=== PATIENT | female | born 1980 | race Caucasian/White ===

== ENCOUNTER 2018-02-20 04:55 | Outpatient (CLI) | payer OTHER ==
[~2018-02-20] VITALS: Ht 162.6 cm; Wt 97.7 kg
[~2018-02-20 04:55] MED LIST: PREN1TAB10 PO
[2018-02-20] MEDS ORDERED: CALC200T3 PO (05:59)
[2018-02-20] MEDS ORDERED: BETAMETHASONE 6 MG/ML, 5ML IM ONE ×2 (06:55→07:00)
== END 2018-02-20 07:43 | disposition home or self-care (01) ==
LOC: LDOP 04:55
PROVIDERS: ATTEND Obstetrics & Gynecology Gynecology
DX: O26.893 Other specified pregnancy related conditions, third trimester (principal); R10.9 Unspecified abdominal pain; Z3A.34 34 weeks gestation of pregnancy
CPT/HCPCS: 59025; 96372; 99211; J0702; G0463

== ENCOUNTER 2018-02-21 07:06 | Outpatient (CLI) | payer OTHER ==
[~2018-02-21 07:06] MED LIST changes: +CALC200T3 PO
[2018-02-21] MEDS ORDERED: BETAMETHASONE 6 MG/ML, 5ML IM ONE (07:30)
[2018-02-21 08:18] LABS: BASOPHILS # (AUTO) 0.01 x10^3/uL (0-0.1); BASOPHILS % (AUTO) 0 % (0-1); EOSINOPHILS # (AUTO) 0.03 x10^3/uL (0-0.4); EOSINOPHILS % (AUTO) 1 % (1-7); LYMPHOCYTES % (AUTO) 21 % (22-44); MD NO; MEAN CORPUSCULAR HEMOGLOBIN 31.7 pg (27.0-34.8); MEAN CORPUSCULAR HGB CONC 33.6 g/dL (32.4-35.8); MEAN CORPUSCULAR VOLUME 94.4 fL (80-100); MEAN PLATELET VOLUME 9.1 fL (7.4-10.4); MONOCYTES # (AUTO) 0.38 x10^3/uL (0.2-0.8); MONOCYTES % (AUTO) 7 % (2-9); NEUTROPHILS # (AUTO) 3.82 x10^3/uL (1.8-6.8); NEUTROPHILS % (AUTO) 72 % (42-75); PLATELET COUNT 222 x10^3/uL (130-400); RED BLOOD COUNT 3.72 x10^6/uL (3.82-5.3); RED CELL DISTRIBUTION WIDTH 13.2 % (9.6-15.2)
[2018-02-21 08:21] LABS: ALBUMIN 2.2 g/dL (3.4-5.0); ANION GAP 12 mmol/L (5-15); BILIRUBIN, DIRECT < 0.1 mg/dL (0.1-0.2); CALCIUM 9.2 mg/dL (8.5-10.1); CHLORIDE 110 mmol/L (98-107)
[2018-02-21 08:24] LABS: ALANINE AMINOTRANSFERASE 21 U/L (12-78); ALKALINE PHOSPHATASE 167 U/L (45-117); BILIRUBIN,TOTAL 0.2 mg/dL (0.2-1.0); CREATININE 0.87 mg/dL (0.55-1.02); TOTAL PROTEIN 6.1 g/dL (6.4-8.2)
[2018-02-21 09:05] LABS: MICROSCOPIC INDICATED
[2018-02-21 09:08] LABS: CREATININE,URINE RANDOM 72.2 mg/dL
== END 2018-02-21 10:18 | disposition home or self-care (01) ==
LOC: LDOP 07:06
PROVIDERS: ATTEND Obstetrics & Gynecology Gynecology
DX: O26.893 Other specified pregnancy related conditions, third trimester (principal); Z3A.34 34 weeks gestation of pregnancy
CPT/HCPCS: 36415; 59025; 80053; 81001; 81050; 82248; 82570; 84156; 84550; 85025; 96372; 99211; J0702; G0463

== ENCOUNTER 2018-02-24 21:51 | Inpatient (IN) | payer OTHER ==
[~2018-02-24] VITALS: Ht 162.6 cm; Wt 99.0 kg
[2018-02-24] MEDS ORDERED: OXYTOCIN 30U/ 0.9% NaCL 500ML 500 ML IV SCH (22:27)
[2018-02-24] MEDS ORDERED: LACTATED RINGERS 1,000 ML IV SCH ×2 (22:27→22:30)
[2018-02-24] MEDS ORDERED: METOCLOPRAMIDE 5 MG/ML, 2ML IV ONE (22:30)
[2018-02-24] MEDS ORDERED: LACTATED RINGERS 1,000 ML IVBOLUS ONE (22:30)
[2018-02-24] MEDS ORDERED: ONDANSETRON 2MG/ML, 2ML IVPush ONE (22:30)
[2018-02-24] MEDS ORDERED: SODIUM CITRATE/CITRIC ACID 30 ML UDC PO ONE (22:30)
[2018-02-24] MEDS ORDERED: LABETALOL 5MG/ML, 20ML IVPush STA (22:47)
[2018-02-24] MEDS ORDERED: LABETALOL 5MG/ML, 20ML ONE (22:49)
[2018-02-24] MEDS ORDERED: MAGNESIUM SULFATE PMX 4GM/100M 100 ML ONE (22:50)
[2018-02-24] MEDS ORDERED: METOCLOPRAMIDE 5 MG/ML, 2ML ONE (22:51)
[2018-02-24] MEDS ORDERED: SODIUM CITRATE/CITRIC ACID 30 ML UDC ONE ×2 (22:51)
[2018-02-24] MEDS ORDERED: MAGNESIUM SULF. PMX 20GM/500ML 500 ML IV ONE ×2 (22:51→23:00)
[2018-02-24] MEDS ORDERED: OXYTOCIN 30U/ 0.9% NaCL 500ML 500 ML ONE (22:52)
[2018-02-24] MEDS ORDERED: FENTANYL PF 100 MCG/2ML ONE (23:04)
[2018-02-24] MEDS ORDERED: OXYTOCIN 10 UNITS/ML, 1ML ONE (23:04)
[2018-02-24] MEDS ORDERED: NEWBORN KIT ONE (23:10)
[2018-02-24 23:11] LABS: ALANINE AMINOTRANSFERASE 27 U/L (12-78); ALBUMIN 2.3 g/dL (3.4-5.0); ANION GAP 8 mmol/L (5-15); BILIRUBIN, DIRECT < 0.1 mg/dL (0.1-0.2); CALCIUM 9.3 mg/dL (8.5-10.1); CHLORIDE 109 mmol/L (98-107); CREATININE 0.75 mg/dL (0.55-1.02)
[2018-02-24 23:13] LABS: ALKALINE PHOSPHATASE 164 U/L (45-117); BILIRUBIN,TOTAL 0.3 mg/dL (0.2-1.0); TOTAL PROTEIN 6.3 g/dL (6.4-8.2)
[2018-02-24 23:17] LABS: BASOPHILS % (AUTO) 0 % (0-1); EOSINOPHILS # (AUTO) 0.06 x10^3/uL (0-0.4); EOSINOPHILS % (AUTO) 1 % (1-7); LYMPHOCYTES # (AUTO) 1.07 x10^3/uL (1-3.4); LYMPHOCYTES % (AUTO) 16 % (22-44); MD NO; MEAN CORPUSCULAR HEMOGLOBIN 31.5 pg (27.0-34.8); MEAN CORPUSCULAR HGB CONC 33.3 g/dL (32.4-35.8); MEAN CORPUSCULAR VOLUME 94.6 fL (80-100); MEAN PLATELET VOLUME 8.7 fL (7.4-10.4); MONOCYTES # (AUTO) 0.45 x10^3/uL (0.2-0.8); MONOCYTES % (AUTO) 7 % (2-9); NEUTROPHILS # (AUTO) 5.16 x10^3/uL (1.8-6.8); NEUTROPHILS % (AUTO) 77 % (42-75); PLATELET COUNT 221 x10^3/uL (130-400); RED CELL DISTRIBUTION WIDTH 13.3 % (9.6-15.2)
[2018-02-24] MEDS ORDERED: CLINDAMYCIN PMX 900MG/50ML 50 ML ONE (23:28)
[2018-02-24] MEDS: MAGNESIUM SULF. PMX 20GM/500ML 500 ML IV SCH (23:40)
[2018-02-24 23:45] LABS: MICROSCOPIC NOT IND
[2018-02-25] MEDS ORDERED: LACTATED RINGERS 1,000 ML IV SCH ×2 (00:47)
[2018-02-25] MEDS ORDERED: OXYTOCIN 30U/ 0.9% NaCL 500ML 500 ML IV SCH (00:47)
[2018-02-25] MEDS ORDERED: MORPHINE SULFATE 4 MG/ML, 1ML IVPush PRN (01:00)
[2018-02-25] MEDS ORDERED: hydrALAzine 20 MG/ML, 1ML IV PRN (01:00)
[2018-02-25] MEDS ORDERED: LABETALOL 5MG/ML, 20ML IV PRN (01:00)
[2018-02-25] MEDS ORDERED: morphine SULFATE 10 MG/ML, 1ML IVPush PRN (01:00)
[2018-02-25] MEDS ORDERED: FENTANYL PF 100 MCG/2ML IV PRN (01:00)
[2018-02-25] MEDS ORDERED: PROMETHAZINE 25 MG/ML, 1ML IM PRN (01:00)
[2018-02-25] MEDS ORDERED: ONDANSETRON 2MG/ML, 2ML IV PRN ×2 (01:00)
[2018-02-25] MEDS ORDERED: MISOPROSTOL 200 MCG TABLET PR PRN (01:00)
[2018-02-25] MEDS ORDERED: OXYcodone 5 MG/5 ML ORAL.SOL UDC PO PRN (01:00)
[2018-02-25] MEDS ORDERED: MEPERIDINE/PF 50 MG/ML ONE ×2 (01:27→04:55)
[2018-02-25] MEDS ORDERED: MEPERIDINE/PF 25MG/0.5ML IVPush PRN (01:30)
[2018-02-25] MEDS: MEPERIDINE/PF 50 MG/ML IVPush PRN ×2 (01:33→05:01)
[2018-02-25] MEDS ORDERED: KETOROLAC 30 MG/1 ML ONE ×4 (03:48→22:30)
[2018-02-25] MEDS: KETOROLAC 30 MG/1 ML IV SCH ×4 (03:52→22:34)
[2018-02-25 06:12] LABS: BASOPHILS % (AUTO) 0 % (0-1); EOSINOPHILS # (AUTO) 0.02 x10^3/uL (0-0.4); EOSINOPHILS % (AUTO) 0 % (1-7); LYMPHOCYTES # (AUTO) 0.92 x10^3/uL (1-3.4); LYMPHOCYTES % (AUTO) 11 % (22-44); MD NO; MEAN CORPUSCULAR HEMOGLOBIN 32.1 pg (27.0-34.8); MEAN CORPUSCULAR HGB CONC 34.3 g/dL (32.4-35.8); MEAN CORPUSCULAR VOLUME 93.7 fL (80-100); MEAN PLATELET VOLUME 8.7 fL (7.4-10.4); MONOCYTES # (AUTO) 0.52 x10^3/uL (0.2-0.8); MONOCYTES % (AUTO) 6 % (2-9); NEUTROPHILS # (AUTO) 7.04 x10^3/uL (1.8-6.8); NEUTROPHILS % (AUTO) 83 % (42-75); PLATELET COUNT 198 x10^3/uL (130-400); RED BLOOD COUNT 3.56 x10^6/uL (3.82-5.3); RED CELL DISTRIBUTION WIDTH 13.4 % (9.6-15.2)
[2018-02-25 06:21] LABS: ALBUMIN 2.1 g/dL (3.4-5.0); ANION GAP 10 mmol/L (5-15); CALCIUM 8.5 mg/dL (8.5-10.1); CHLORIDE 109 mmol/L (98-107)
[2018-02-25 06:24] LABS: ALANINE AMINOTRANSFERASE 28 U/L (12-78); ALKALINE PHOSPHATASE 148 U/L (45-117); BILIRUBIN,TOTAL 0.3 mg/dL (0.2-1.0); TOTAL PROTEIN 5.9 g/dL (6.4-8.2)
[2018-02-25] MEDS ORDERED: OXYcodone 5 MG/5 ML ORAL.SOL UDC ONE (08:22)
[2018-02-25] MEDS: PRENATAL VIT/IRON/FA 1 EACH TABLET PO SCH (09:00)
[2018-02-25] MEDS ORDERED: MAGNESIUM SULF. PMX 20GM/500ML 500 ML IV ONE ×2 (09:39→19:20)
[2018-02-25] MEDS: MAGNESIUM SULF. PMX 20GM/500ML 500 ML IV SCH ×2 (09:44→19:41)
[2018-02-25] MEDS ORDERED: OXYcodone/APAP 5/325MG TABLET ONE ×2 (14:25→21:01)
[2018-02-25] MEDS: OXYcodone/APAP 5/325MG TABLET PO PRN ×2 (14:27→14:28)
[2018-02-25] MEDS ORDERED: LABETALOL 5MG/ML, 20ML IVPush ONE (21:00)
[2018-02-25] MEDS ORDERED: LABETALOL 100 MG TABLET ONE (22:16)
[2018-02-25] MEDS: LABETALOL 100 MG TABLET PO SCH (22:23)
[2018-02-26] MEDS: LACTATED RINGERS 1,000 ML IV SCH ×2 (00:39→20:47)
[2018-02-26] MEDS: OXYcodone/APAP 5/325MG TABLET PO PRN (00:40)
[2018-02-26] MEDS ORDERED: KETOROLAC 30 MG/1 ML ONE (04:00)
[2018-02-26] MEDS: KETOROLAC 30 MG/1 ML IV SCH ×4 (04:02→22:41)
[2018-02-26] MEDS ORDERED: LABETALOL 100 MG TABLET ONE (05:51)
[2018-02-26] MEDS: LABETALOL 100 MG TABLET PO SCH ×2 (05:54→17:42)
[2018-02-26] MEDS ORDERED: OXYcodone IR 5MG TABLET ONE (07:42)
[2018-02-26] MEDS: OXYcodone IR 5MG TABLET PO PRN ×3 (07:44→22:41)
[2018-02-26 07:48] VITALS: BP 139/83
[2018-02-26] MEDS: PRENATAL VIT/IRON/FA 1 EACH TABLET PO SCH (09:00)
[2018-02-26 09:13] VITALS: BP 134/88
[2018-02-26 12:12] VITALS: BP 132/82
[2018-02-26 16:19] VITALS: BP 142/86
[2018-02-26] MEDS: DOCUSATE 100 MG CAPSULE PO PRN (17:42)
[2018-02-26 20:15] VITALS: BP 129/77
[2018-02-27] VITALS (7 sets, daily range): BP systolic 141–159; BP diastolic 87–102
[2018-02-27] MEDS: OXYcodone IR 5MG TABLET PO PRN ×3 (04:20→19:37)
[2018-02-27] MEDS: LABETALOL 100 MG TABLET PO SCH ×2 (06:33→18:23)
[2018-02-27] MEDS: DOCUSATE 100 MG CAPSULE PO PRN ×2 (08:53→19:37)
[2018-02-27] MEDS: IBUPROFEN 600 MG TABLET PO PRN ×2 (08:53→18:23)
[2018-02-27] MEDS: PRENATAL VIT/IRON/FA 1 EACH TABLET PO SCH (08:54)
[2018-02-27] MEDS: OXYcodone/APAP 5/325MG TABLET PO PRN ×2 (14:33→18:23)
[2018-02-27] MEDS: LACTATED RINGERS 1,000 ML IV SCH (16:47)
[2018-02-27] MEDS ORDERED: LABETALOL 100 MG TABLET PO ONE (21:30)
[2018-02-28] MEDS: IBUPROFEN 600 MG TABLET PO PRN (01:30)
[2018-02-28] MEDS: OXYcodone/APAP 5/325MG TABLET PO PRN ×4 (01:31→22:18)
[2018-02-28 04:05] VITALS: BP 141/92
[2018-02-28 05:50] VITALS: BP 133/88
[2018-02-28] MEDS: LABETALOL 200 MG TABLET PO SCH ×2 (05:54→18:12)
[2018-02-28] MEDS: OXYcodone IR 5MG TABLET PO PRN (05:55)
[2018-02-28 07:37] VITALS: BP 133/85
[2018-02-28] MEDS: PRENATAL VIT/IRON/FA 1 EACH TABLET PO SCH (09:28)
[2018-02-28] MEDS: DOCUSATE 100 MG CAPSULE PO PRN (09:28)
[2018-02-28 11:32] VITALS: BP 147/99
[2018-02-28] MEDS: LACTATED RINGERS 1,000 ML IV SCH (12:47)
[2018-02-28] MEDS ORDERED: HYDROXYZINE PAMOATE 50MG CAP PO PRN (16:00)
[2018-02-28] MEDS ORDERED: ONDANSETRON ODT 4 MG PO PRN (16:00)
[2018-02-28 16:20] VITALS: BP 147/99
[2018-02-28 20:00] VITALS: BP 134/85
[2018-03-01] MEDS: OXYcodone/APAP 5/325MG TABLET PO PRN ×3 (05:33→16:30)
[2018-03-01 05:34] VITALS: BP 153/96
[2018-03-01] MEDS: LABETALOL 200 MG TABLET PO SCH ×2 (05:34→17:37)
[2018-03-01 07:15] VITALS: BP 132/84
[2018-03-01] MEDS: LACTATED RINGERS 1,000 ML IV SCH (08:47)
[2018-03-01] MEDS: PRENATAL VIT/IRON/FA 1 EACH TABLET PO SCH (09:11)
[2018-03-01] MEDS: DOCUSATE 100 MG CAPSULE PO PRN (09:11)
[2018-03-01] MEDS: IBUPROFEN 600 MG TABLET PO PRN ×2 (11:40→18:06)
[2018-03-01 12:22] VITALS: BP 136/77
[2018-03-01] MEDS ORDERED: IBUP-1222 PO (12:39)
[2018-03-01] MEDS ORDERED: OXYC-302 PO (12:39)
[2018-03-01] MEDS ORDERED: LABE200T6 PO (12:40)
[2018-03-01 16:27] VITALS: BP 142/89
[2018-03-01] MEDS ORDERED: FUROSEMIDE 20 MG TABLET PO SCH (17:18)
== END 2018-03-01 18:50 | disposition home or self-care (01) | DRG 788 ==
LOC: LDOP 21:51 → LDIP 22:32 → 2NE 02-25 00:50 → 2NW 02-26 09:03
PROVIDERS: ADMIT Obstetrics & Gynecology Gynecology; ATTEND Obstetrics & Gynecology Gynecology
PROC: 10D00Z1 Extraction of Products of Conception, Low, Open Approach (ICD-10-PCS; principal; 2018-02-25)
DX: O14.14 Severe pre-eclampsia complicating childbirth (principal); O69.81X2 Labor and delivery complicated by cord around neck, without compression, fetus 2; E03.9 Hypothyroidism, unspecified; O99.344 Other mental disorders complicating childbirth; F32.9 Major depressive disorder, single episode, unspecified; O99.284 Endocrine, nutritional and metabolic diseases complicating childbirth; O30.043 Twin pregnancy, dichorionic/diamniotic, third trimester; Z3A.34 34 weeks gestation of pregnancy; Z37.2 Twins, both liveborn; Z83.3 Family history of diabetes mellitus; Z84.89 Family history of other specified conditions; Z88.0 Allergy status to penicillin
CPT/HCPCS: 36415; 80053; 81003; 82248; 82803; 83735; 84550; 85025; 86850; 86900; 86923; 88307; G0378; J1885; J2175; J3010; Q0162; J2590; J2765; J3475; J7120

== ENCOUNTER 2018-03-02 20:36 | Inpatient (IN) | payer OTHER ==
[~2018-03-02] VITALS: Ht 162.6 cm; Wt 87.1 kg
[~2018-03-02 20:36] MED LIST changes: +IBUP-1222 PO; +LABE200T6 PO; +OXYC-302 PO; +hydrALAzine 20 MG/ML, 1ML IV ONE
[2018-03-02 21:14] LABS: MICROSCOPIC INDICATED
[2018-03-02 21:16] LABS: CULTURE INDICATED? NO
[2018-03-02 21:16] LABS: BASOPHILS # (AUTO) 0.02 x10^3/uL (0-0.1); BASOPHILS % (AUTO) 0 % (0-1); EOSINOPHILS % (AUTO) 3 % (1-7); LYMPHOCYTES # (AUTO) 0.85 x10^3/uL (1-3.4); LYMPHOCYTES % (AUTO) 14 % (22-44); MD NO; MEAN CORPUSCULAR HEMOGLOBIN 31.4 pg (27.0-34.8); MEAN CORPUSCULAR HGB CONC 33.1 g/dL (32.4-35.8); MONOCYTES # (AUTO) 0.59 x10^3/uL (0.2-0.8); MONOCYTES % (AUTO) 10 % (2-9); NEUTROPHILS # (AUTO) 4.29 x10^3/uL (1.8-6.8); NEUTROPHILS % (AUTO) 72 % (42-75); PLATELET COUNT 331 x10^3/uL (130-400); RED BLOOD COUNT 3.86 x10^6/uL (3.82-5.3); RED CELL DISTRIBUTION WIDTH 13.8 % (9.6-15.2)
[2018-03-02 21:28] LABS: ALANINE AMINOTRANSFERASE 38 U/L (12-78); ALBUMIN 2.8 g/dL (3.4-5.0); ANION GAP 8 mmol/L (5-15); CHLORIDE 107 mmol/L (98-107); CREATININE 0.84 mg/dL (0.55-1.02); INTERNATIONAL NORMALIZED RATIO 0.94 (0.93-1.1); PROTHROMBIN TIME 9.7 Seconds (9.6-11.5)
[2018-03-02 21:31] LABS: ALKALINE PHOSPHATASE 136 U/L (45-117); BILIRUBIN,TOTAL 0.4 mg/dL (0.2-1.0); TOTAL PROTEIN 7.4 g/dL (6.4-8.2)
[2018-03-02] MEDS ORDERED: hydrALAzine 20 MG/ML, 1ML IV ONE ×2 (22:00→23:00)
[2018-03-02] MEDS ORDERED: hydrALAzine 20 MG/ML, 1ML ONE ×2 (22:06→22:50)
[2018-03-02] MEDS ORDERED: OXYcodone/APAP 5/325MG TABLET PO ONE (22:30)
[2018-03-02] MEDS ORDERED: OXYcodone/APAP 5/325MG TABLET ONE (22:38)
[2018-03-02] MEDS ORDERED: LABETALOL 100 MG TABLET ONE (22:50)
[2018-03-02] MEDS ORDERED: LABETALOL 200 MG TABLET ONE (22:50)
[2018-03-02] MEDS ORDERED: LABETALOL 300 MG TABLET PO ONE (23:00)
[2018-03-02] MEDS ORDERED: LABETALOL 300 MG TABLET PO SCH (23:00)
[2018-03-02 23:16] VITALS: BP 176/92
[2018-03-02] MEDS ORDERED: LACTATED RINGERS 1,000 ML IV PRN (23:38)
[2018-03-02] MEDS ORDERED: MAGNESIUM SULF. PMX 20GM/500ML 500 ML IV SCH (23:38)
[2018-03-02] MEDS ORDERED: MAGNESIUM SULF. PMX 20GM/500ML 500 ML IV ONE (23:49)
[2018-03-03] MEDS ORDERED: MAGNESIUM SULFATE PMX 4GM/100M 100 ML IVPB ONE
[2018-03-03] MEDS ORDERED: hydrALAzine 20 MG/ML, 1ML IVPush ONE ×2
[2018-03-03] MEDS ORDERED: LABETALOL 5MG/ML, 20ML IVPush ONE
[2018-03-03 01:00] VITALS: BP 126/74
[2018-03-03] MEDS ORDERED: ACETAMINOPHEN 325 MG TABLET PO PRN (02:50)
[2018-03-03] MEDS ORDERED: ACETAMINOPHEN 325 MG TABLET ONE (02:56)
[2018-03-03 06:43] LABS: BASOPHILS % (AUTO) 0 % (0-1); EOSINOPHILS # (AUTO) 0.23 x10^3/uL (0-0.4); EOSINOPHILS % (AUTO) 5 % (1-7); LYMPHOCYTES # (AUTO) 0.86 x10^3/uL (1-3.4); LYMPHOCYTES % (AUTO) 17 % (22-44); MD NO; MEAN CORPUSCULAR HEMOGLOBIN 31.8 pg (27.0-34.8); MEAN CORPUSCULAR HGB CONC 33.4 g/dL (32.4-35.8); MEAN CORPUSCULAR VOLUME 95.1 fL (80-100); MEAN PLATELET VOLUME 7.2 fL (7.4-10.4); MONOCYTES # (AUTO) 0.68 x10^3/uL (0.2-0.8); MONOCYTES % (AUTO) 13 % (2-9); NEUTROPHILS # (AUTO) 3.38 x10^3/uL (1.8-6.8); NEUTROPHILS % (AUTO) 66 % (42-75); PLATELET COUNT 345 x10^3/uL (130-400); RED BLOOD COUNT 3.73 x10^6/uL (3.82-5.3); RED CELL DISTRIBUTION WIDTH 13.7 % (9.6-15.2)
[2018-03-03 06:53] LABS: ALANINE AMINOTRANSFERASE 34 U/L (12-78); ALBUMIN 2.7 g/dL (3.4-5.0); ANION GAP 10 mmol/L (5-15); CALCIUM 8.7 mg/dL (8.5-10.1); CHLORIDE 106 mmol/L (98-107)
[2018-03-03] MEDS ORDERED: OXYcodone/APAP 5/325MG TABLET ONE ×3 (06:53→19:36)
[2018-03-03 06:56] LABS: ALKALINE PHOSPHATASE 122 U/L (45-117); BILIRUBIN,TOTAL 0.3 mg/dL (0.2-1.0); CREATININE 0.72 mg/dL (0.55-1.02); TOTAL PROTEIN 7.1 g/dL (6.4-8.2)
[2018-03-03 07:05] VITALS: BP 125/81
[2018-03-03] MEDS: OXYcodone/APAP 5/325MG TABLET PO PRN ×3 (07:05→19:48)
[2018-03-03] MEDS ORDERED: LABETALOL 300 MG TABLET ONE ×2 (09:58→21:42)
[2018-03-03] MEDS: LABETALOL 300 MG TABLET PO SCH ×2 (10:02→21:58)
[2018-03-03] MEDS ORDERED: MAGNESIUM SULF. PMX 20GM/500ML 500 ML IV ONE (11:20)
[2018-03-04] MEDS ORDERED: OXYcodone/APAP 5/325MG TABLET ONE (06:20)
[2018-03-04] MEDS: OXYcodone/APAP 5/325MG TABLET PO PRN (06:25)
[2018-03-04 07:40] VITALS: BP 143/85
[2018-03-04] MEDS ORDERED: LABETALOL 300 MG TABLET ONE (10:00)
[2018-03-04] MEDS: LABETALOL 300 MG TABLET PO SCH (10:04)
== END 2018-03-04 14:35 | disposition home or self-care (01) | DRG 776 ==
LOC: ED 21:20 → 2NE 22:49 → OBSVTOIN 22:49 → 2NE 03-03 17:27
PROVIDERS: ADMIT Obstetrics & Gynecology Maternal & Fetal Medicine; ATTEND Obstetrics & Gynecology Maternal & Fetal Medicine
DX: O14.15 Severe pre-eclampsia, complicating the puerperium (principal); O99.285 Endocrine, nutritional and metabolic diseases complicating the puerperium; E03.9 Hypothyroidism, unspecified; Z83.3 Family history of diabetes mellitus; Z82.49 Family history of ischemic heart disease and other diseases of the circulatory system; F53.0 Postpartum depression; Z88.1 Allergy status to other antibiotic agents; Z88.0 Allergy status to penicillin; Z88.2 Allergy status to sulfonamides; Z88.8 Allergy status to other drugs, medicaments and biological substances
CPT/HCPCS: 36415; 80053; 81001; 83735; 84550; 85025; 85610; 85730; 96374; 99285; G0378; J0360; J3475; J7120

== ENCOUNTER 2018-03-10 09:55 | Observation (INO) | payer OTHER ==
[~2018-03-10 09:55] MED LIST changes: -hydrALAzine 20 MG/ML, 1ML IV ONE
[2018-03-10] MEDS ORDERED: ACETAMINOPHEN 500 MG TABLET ONE (16:22)
[2018-03-10] MEDS ORDERED: PLEASE ENTER HEIGHT AND WEIGHT MC SCH (16:30)
[2018-03-10] MEDS ORDERED: ACETAMINOPHEN 500 MG TABLET PO PRN (16:30)
[2018-03-10 17:09] LABS: BASOPHILS # (AUTO) 0.02 x10^3/uL (0-0.1); BASOPHILS % (AUTO) 0 % (0-1); EOSINOPHILS # (AUTO) 0.17 x10^3/uL (0-0.4); EOSINOPHILS % (AUTO) 4 % (1-7); LYMPHOCYTES # (AUTO) 1.21 x10^3/uL (1-3.4); LYMPHOCYTES % (AUTO) 31 % (22-44); MD NO; MEAN CORPUSCULAR HEMOGLOBIN 31.9 pg (27.0-34.8); MEAN CORPUSCULAR HGB CONC 33.6 g/dL (32.4-35.8); MEAN CORPUSCULAR VOLUME 94.9 fL (80-100); MEAN PLATELET VOLUME 7.2 fL (7.4-10.4); MONOCYTES # (AUTO) 0.45 x10^3/uL (0.2-0.8); MONOCYTES % (AUTO) 12 % (2-9); NEUTROPHILS # (AUTO) 2.11 x10^3/uL (1.8-6.8); NEUTROPHILS % (AUTO) 53 % (42-75); PLATELET COUNT 379 x10^3/uL (130-400); RED BLOOD COUNT 4.22 x10^6/uL (3.82-5.3); RED CELL DISTRIBUTION WIDTH 13.6 % (9.6-15.2)
[2018-03-10 17:22] LABS: ALANINE AMINOTRANSFERASE 30 U/L (12-78); ALBUMIN 3.2 g/dL (3.4-5.0); ANION GAP 7 mmol/L (5-15); CALCIUM 9.3 mg/dL (8.5-10.1); CHLORIDE 108 mmol/L (98-107)
[2018-03-10 17:25] LABS: ALKALINE PHOSPHATASE 101 U/L (45-117); BILIRUBIN,TOTAL 0.3 mg/dL (0.2-1.0); CREATININE 0.91 mg/dL (0.55-1.02); TOTAL PROTEIN 7.6 g/dL (6.4-8.2)
[2018-03-10] MEDS ORDERED: LABETALOL 200 MG TABLET ONE (18:29)
[2018-03-10] MEDS ORDERED: LABETALOL 200 MG TABLET PO SCH (18:30)
[2018-03-10] MEDS ORDERED: LABE200T6 PO (20:19)
[2018-03-11] MEDS ORDERED: ONDA4TAB12 PO (22:16)
== END 2018-03-10 20:25 | disposition home or self-care (01) ==
LOC: LDOP 09:55 → LDIP 10:09
PROVIDERS: ADMIT Obstetrics & Gynecology Gynecology; ATTEND Obstetrics & Gynecology Gynecology
DX: O14.94 Unspecified pre-eclampsia, complicating childbirth (principal); O30.009 Twin pregnancy, unspecified number of placenta and unspecified number of amniotic sacs, unspecified trimester; I95.9 Hypotension, unspecified; Z37.2 Twins, both liveborn; Z98.891 History of uterine scar from previous surgery
CPT/HCPCS: 36415; 80053; 85025; G0378

== ENCOUNTER 2018-03-11 10:42 | Observation (INO) | payer OTHER ==
[~2018-03-11] VITALS: Ht 162.6 cm; Wt 78.9 kg
[2018-03-11] MEDS ORDERED: NEOSTIGMINE 1 MG/ML, 10ML ONE (11:27)
[2018-03-11] MEDS ORDERED: GLYCOPYRROLATE 0.2MG/1ML, 5ML ONE (11:27)
[2018-03-11] MEDS ORDERED: ROCURONIUM 10MG/ML,5ML ONE (11:27)
[2018-03-11] MEDS ORDERED: PROPOFOL 10 MG/ML, 20ML ONE (11:27)
[2018-03-11] MEDS ORDERED: SUCCINYLCHOLINE 20 MG/ML, 10ML ONE (11:27)
[2018-03-11] MEDS ORDERED: CEFAZOLIN 1,000 MG ONE (11:27)
[2018-03-11] MEDS ORDERED: ONDANSETRON 2MG/ML, 2ML ONE (11:27)
[2018-03-11] MEDS ORDERED: DEXAMETHASONE 4 MG/ML, 1ML ONE (11:27)
[2018-03-11] MEDS ORDERED: MAALOX/HYOSCYAMINE/LIDOCAINE 45 ML BTL PO ONE (12:00)
[2018-03-11] MEDS ORDERED: MAALOX/HYOSCYAMINE/LIDOCAINE 45 ML BTL ONE (12:03)
[2018-03-11 12:16] LABS: CULTURE INDICATED? YES; MICROSCOPIC INDICATED
[2018-03-11 12:35] LABS: MEAN CORPUSCULAR HEMOGLOBIN 31.9 pg (27.0-34.8); MEAN CORPUSCULAR HGB CONC 33.5 g/dL (32.4-35.8); MEAN CORPUSCULAR VOLUME 95.2 fL (80-100); MEAN PLATELET VOLUME 7.2 fL (7.4-10.4); PLATELET COUNT 391 x10^3/uL (130-400); RED BLOOD COUNT 4.36 x10^6/uL (3.82-5.3); RED CELL DISTRIBUTION WIDTH 13.6 % (9.6-15.2)
[2018-03-11 12:45] LABS: ALANINE AMINOTRANSFERASE 45 U/L (12-78); ALBUMIN 3.5 g/dL (3.4-5.0); ANION GAP 7 mmol/L (5-15); CALCIUM 9.7 mg/dL (8.5-10.1); CHLORIDE 106 mmol/L (98-107); CREATININE 1.02 mg/dL (0.55-1.02)
[2018-03-11 12:47] LABS: ALKALINE PHOSPHATASE 134 U/L (45-117); BILIRUBIN,TOTAL 0.5 mg/dL (0.2-1.0)
[2018-03-11 12:54] LABS: BASOPHILS # (AUTO) 0.01 x10^3/uL (0-0.1); BASOPHILS % (AUTO) 0 % (0-1); EOSINOPHILS # (AUTO) 0.18 x10^3/uL (0-0.4); EOSINOPHILS % (AUTO) 2 % (1-7); LYMPHOCYTES # (AUTO) 1.24 x10^3/uL (1-3.4); LYMPHOCYTES % (AUTO) 15 % (22-44); MD SCAN; MONOCYTES # (AUTO) 0.47 x10^3/uL (0.2-0.8); MONOCYTES % (AUTO) 6 % (2-9); NEUTROPHILS # (AUTO) 6.51 x10^3/uL (1.8-6.8); NEUTROPHILS % (AUTO) 77 % (42-75)
[2018-03-11] MEDS ORDERED: METRONIDAZOLE PMX 500MG/100ML 100 ML IV ONE (14:30)
[2018-03-11] MEDS ORDERED: CIPROFLOXACIN/PMX 400MG/200ML 200 ML IV ONE (14:30)
[2018-03-11] MEDS ORDERED: CIPROFLOXACIN/PMX 400MG/200ML 200 ML ONE (14:33)
[2018-03-11] MEDS ORDERED: MIDAZOLAM 1 MG/ML, 2ML ONE (16:33)
[2018-03-11] MEDS ORDERED: FENTANYL PF 250 MCG/5ML ONE (16:33)
[2018-03-11] MEDS ORDERED: FENTANYL PF 100 MCG/2ML ONE (17:40)
[2018-03-11] MEDS ORDERED: OXYcodone 5 MG/5 ML ORAL.SOL UDC ONE (17:40)
[2018-03-11] MEDS: FENTANYL PF 100 MCG/2ML IV PRN ×2 (17:44→17:55)
[2018-03-11] MEDS ORDERED: MEPERIDINE/PF 25MG/0.5ML IVPush PRN (18:00)
[2018-03-11] MEDS ORDERED: OXYcodone 5 MG/5 ML ORAL.SOL UDC PO PRN (18:00)
[2018-03-11] MEDS ORDERED: HYDROmorphone 1 MG/ML, 1ML IV PRN (18:00)
[2018-03-11] MEDS ORDERED: KETOROLAC 30 MG/1 ML IV PRN (18:00)
[2018-03-11] MEDS ORDERED: METOCLOPRAMIDE 5 MG/ML, 2ML IV PRN (18:00)
[2018-03-11] MEDS ORDERED: ONDANSETRON 2MG/ML, 2ML IVPush PRN ×2 (18:00→19:00)
[2018-03-11] MEDS ORDERED: PROMETHAZINE 25 MG/ML, 1ML IV PRN (18:00)
[2018-03-11] MEDS ORDERED: ALBUTEROL SULFATE 2.5 MG/3 ML NPPB PRN (18:00)
[2018-03-11] MEDS ORDERED: LABETALOL 5MG/ML, 20ML IV PRN (18:00)
[2018-03-11] MEDS ORDERED: hydrALAzine 20 MG/ML, 1ML IV PRN (18:00)
[2018-03-11 18:39] VITALS: BP 144/92
[2018-03-11] MEDS ORDERED: LACTATED RINGERS 1,000 ML IV SCH (19:00)
[2018-03-11] MEDS: MORPHINE SULFATE 4 MG/ML, 1ML IVPush PRN ×2 (19:42→20:18)
[2018-03-11] MEDS ORDERED: ONDA4TAB12 PO (22:16)
[2018-03-11] MEDS: OXYcodone/APAP 5/325MG TABLET PO PRN ×2 (22:56→23:41)
[2018-03-11 23:35] VITALS: BP 139/86
== END 2018-03-11 23:57 | disposition home or self-care (01) ==
LOC: ED 11:29 → EDIP 14:09 → 4NOR 18:26
PROVIDERS: ADMIT Surgery; ATTEND Surgery
DX: K81.0 Acute cholecystitis (principal); Z98.891 History of uterine scar from previous surgery; Z88.0 Allergy status to penicillin; Z88.2 Allergy status to sulfonamides; Z88.8 Allergy status to other drugs, medicaments and biological substances
CPT/HCPCS: 36415; 47562; 74022; 76700; 80053; 81001; 83690; 85025; 87086; 88304; 93005; 96365; 96375; 96376; 99285; G0378; J0330; J0690; J0744; J1100; J2250; J2405; J2704; J2710; J3010; J3490

== ENCOUNTER 2018-09-16 08:46 | Emergency (ER) | payer OTHER ==
[~2018-09-16] VITALS: Ht 162.6 cm; Wt 78.0 kg
[~2018-09-16 08:46] MED LIST changes: +ONDA4TAB12 PO
--- NOTE | 2018-09-16 08:50 | NUR ---
38 Y/O BIB AMBULANCE WITH C/O ABD PAIN. PER PT "I HAD A PROTEIN SHAKE THIS MORNING AND THREW UP AFTER I HAD IT. IT HURTS RIGHT IN THE CENTER, ABOVE MY BELLY BUTTON. I ONLY THREW UP ONCE. IT FEELS JUST LIKE MY PAIN WHEN I GOT MY GALLBLADDER OUT." PT POINTS TO EPIGASTRIC AREA FOR PAIN. PT PLACED ON CONT PULSE OX,NIBP.
--- NOTE | 2018-09-16 08:52 | NUR ---
REPORT TO CLIFFORD ARMAS
[2018-09-16] MEDS ORDERED: ONDANSETRON 2MG/ML, 2ML IVPush ONE (09:30)
[2018-09-16] MEDS ORDERED: SODIUM CHLORIDE FLUSH 10ML SYR IVF ONE (09:30)
[2018-09-16] MEDS ORDERED: MORPHINE SULFATE 4 MG/ML, 1ML IVPush PRN (09:30)
[2018-09-16] MEDS ORDERED: MAALOX/HYOSCYAMINE/LIDOCAINE 45 ML BTL PO ONE (09:30)
--- NOTE | 2018-09-16 09:53 | NUR ---
ASSUMED CARE. PT UOB TO ATTEMPT TO GIVE URINE SAMPLE
[2018-09-16] MEDS ORDERED: MAALOX/HYOSCYAMINE/LIDOCAINE 45 ML BTL ONE (10:03)
[2018-09-16] MEDS ORDERED: MORPHINE SULFATE 4 MG/ML, 1ML ONE (10:03)
[2018-09-16] MEDS ORDERED: ONDANSETRON 2MG/ML, 2ML ONE (10:03)
--- NOTE | 2018-09-16 10:14 | NUR ---
ASSUMED CARE OF PT FOR PAIN MEDICATIONS. PT WITH 9/10 ABD PAIN. MORPHINE GIVEN. PT ON BP AND CONT. PULSE OXIMETR. URINE SENT.
[2018-09-16 10:22] LABS: BASOPHILS # (AUTO) 0.01 x10^3/uL (0-0.1); BASOPHILS % (AUTO) 0 % (0-1); EOSINOPHILS # (AUTO) 0.21 x10^3/uL (0-0.4); EOSINOPHILS % (AUTO) 3 % (1-7); LYMPHOCYTES # (AUTO) 0.89 x10^3/uL (1-3.4); LYMPHOCYTES % (AUTO) 12 % (22-44); MD NO; MEAN CORPUSCULAR HEMOGLOBIN 30.6 pg (27.0-34.8); MEAN CORPUSCULAR HGB CONC 33.6 g/dL (32.4-35.8); MEAN CORPUSCULAR VOLUME 91.1 fL (80-100); MONOCYTES % (AUTO) 9 % (2-9); NEUTROPHILS # (AUTO) 5.97 x10^3/uL (1.8-6.8); NEUTROPHILS % (AUTO) 77 % (42-75); PLATELET COUNT 256 x10^3/uL (130-400); RED BLOOD COUNT 5.23 x10^6/uL (3.82-5.3); RED CELL DISTRIBUTION WIDTH 13.3 % (9.6-15.2)
--- NOTE | 2018-09-16 10:23 | NUR ---
PAIN IMPROVED SINCE MEDICATED, 09/04. AWAITING LABS. VISITOR AT BEDSIDE
[2018-09-16 10:26] LABS: MICROSCOPIC NOT IND
[2018-09-16 10:29] LABS: CULTURE INDICATED? NO
[2018-09-16 10:30] LABS: ANION GAP 6 mmol/L (5-15); CALCIUM 8.6 mg/dL (8.5-10.1); CHLORIDE 110 mmol/L (98-107); CREATININE 0.79 mg/dL (0.55-1.02)
[2018-09-16 10:34] LABS: ALANINE AMINOTRANSFERASE 29 U/L (12-78); ALKALINE PHOSPHATASE 75 U/L (45-117); BILIRUBIN,TOTAL 0.2 mg/dL (0.2-1.0); TOTAL PROTEIN 7.8 g/dL (6.4-8.2)
[2018-09-16] MEDS ORDERED: HYDROmorphone 2 MG/ML, 1ML IV ONE (11:30)
--- NOTE | 2018-09-16 12:07 | NUR ---
ULTRASOUND AT BEDSIDE
--- NOTE | 2018-09-16 12:20 | NUR ---
PT STATES PAIN INTERMITTENT AND NOT FEELING ENOUGH PAIN AT THE MOMENT TO RECEIVE ADDITIONAL PAIN MEDS.
[2018-09-16] MEDS ORDERED: HYDROmorphone 1 MG/ML, 1ML VIAL ONE (12:42)
--- NOTE | 2018-09-16 12:48 | NUR ---
PT STATES PAIN HAS INCREASED 12/04. MEDICATED WITH DIALAUDID. PA AT BEDSIDE DISCUSSING RESULTS AND D/C PLAN.
[2018-09-16 13:00] VITALS: BP 132/74
== END 2018-09-16 13:31 | disposition home or self-care (01) ==
LOC: ED 10:18
DX: K29.70 Gastritis, unspecified, without bleeding (principal)
CPT/HCPCS: 36415; 76700; 80053; 81003; 83690; 84703; 85025; 96374; 96375; 99284; J1170; J2405

== ENCOUNTER 2021-02-04 11:50 | Day surgery (SDC) | payer OTHER ==
[~2021-02-04] VITALS: Ht 162.6 cm; Wt 86.4 kg
[~2021-02-04 11:50] MED LIST changes: +ONDA-89 PO; -ONDA4TAB12 PO; -OXYC-302 PO; +OXYC1TAB12 PO
[2021-02-04 12:34] VITALS: BP 128/95
[2021-02-04] MEDS ORDERED: FENTANYL PF 250 MCG/5ML ONE (12:41)
[2021-02-04] MEDS ORDERED: BUPIVACAINE/PF 0.5% ONE (12:41)
[2021-02-04] MEDS ORDERED: LIDOCAINE/PF 1%, 30ML ONE (12:41)
[2021-02-04] MEDS ORDERED: MIDAZOLAM 1 MG/ML, 2ML ONE (12:41)
[2021-02-04 12:49] LABS: HCG UR SG 1.016 (1.003-1.030)
[2021-02-04] MEDS ORDERED: DESV25TA PO (12:57)
[2021-02-04] MEDS ORDERED: GABAPENTIN PO (12:57)
[2021-02-04] MEDS ORDERED: MULTIVITAMIN PO (12:57)
[2021-02-04] MEDS ORDERED: DEXT10TA7 PO (12:57)
[2021-02-04] MEDS ORDERED: CHLORHEXIDINE 15 ML UDC PO ONE (13:00)
[2021-02-04] MEDS ORDERED: LACTATED RINGERS 1,000 ML IV SCH (13:00)
[2021-02-04] MEDS ORDERED: ROPIvacaine/PF 0.2%, 100ML 550 ML (check volume) INJ ONE (14:30)
[2021-02-04] MEDS ORDERED: OXYcodone 5 MG/5 ML ORAL.SOL UDC ONE (16:11)
[2021-02-04] MEDS ORDERED: ACETAMINOPHEN 650 MG/20.3 ML UDC ONE (16:11)
[2021-02-04] MEDS ORDERED: FENTANYL PF 100 MCG/2ML ONE ×2 (16:11→16:31)
[2021-02-04] MEDS: FENTANYL PF 100 MCG/2ML IV PRN ×4 (16:13→17:18)
[2021-02-04] MEDS ORDERED: PROMETHAZINE 25 MG/ML, 1ML IVPush PRN (16:30)
[2021-02-04] MEDS ORDERED: METHOCARBAMOL 1,000 MG in DEXTROSE 5% 100 ML IV PRN (16:30)
[2021-02-04] MEDS ORDERED: MEPERIDINE/PF 25MG/0.5ML IVPush PRN (16:30)
[2021-02-04] MEDS ORDERED: hydrALAzine 20 MG/ML, 1ML IV PRN (16:30)
[2021-02-04] MEDS ORDERED: LABETALOL 5MG/ML, 20ML IV PRN (16:30)
[2021-02-04] MEDS ORDERED: HYDROmorphone 1 MG/ML, 1ML INJ IVPush PRN (16:30)
[2021-02-04] MEDS ORDERED: OXYcodone 5 MG/5 ML ORAL.SOL UDC PO PRN (16:30)
[2021-02-04] MEDS ORDERED: LORazepam 2 MG/ML, 1ML IVPush PRN (16:30)
[2021-02-04] MEDS ORDERED: ONDANSETRON 2MG/ML, 2ML IVPush PRN (16:30)
[2021-02-04] MEDS ORDERED: ACETAMINOPHEN 325 MG TABLET PO PRN (16:30)
== END 2021-02-04 18:40 | disposition home or self-care (01) ==
LOC: OR 11:50
PROVIDERS: ATTEND Orthopaedic Surgery
DX: S93.325A Dislocation of tarsometatarsal joint of left foot, initial encounter (principal); X58.XXXA Exposure to other specified factors, initial encounter; Y93.89 Activity, other specified; Y92.89 Other specified places as the place of occurrence of the external cause; Y99.8 Other external cause status
CPT/HCPCS: 28615; 28730; 64415; 64447; 73620; 81025; C1713; C1762; J2250; J2795; J2800; J3010; J7120; 76000